=== PATIENT | male | born 1980 | race Caucasian/White ===

== ENCOUNTER 2025-04-26 10:10 | Outpatient (CLI) | payer OTHER, SELFPAY | END 2025-04-26 10:11 | disposition home or self-care (01) | PROVIDERS: PCP Physician Assistant Medical; Visit Provider Physician Assistant Medical | DX: R03.0 Elevated blood-pressure reading, without diagnosis of hypertension (principal); R82.90 Unspecified abnormal findings in urine; Z13.29 Encounter for screening for other suspected endocrine disorder | CPT/HCPCS: 82043; 82570; 84443; 87086 ==